=== PATIENT | male | born 1995 | race Caucasian/White ===

== ENCOUNTER 2024-01-03 16:34 | Emergency (ER) | payer OTHER, SELFPAY ==
[2024-01-03 16:37] VITALS: BP 143/85
[2024-01-03 17:27] VITALS: BP 143/82
[2024-01-03 17:29] LABS: Urine Albumin Negative (Neg - Trace); Urine Bilirubin Negative (Negative); Urine Character Clear (Clear); Urine Color Yellow; Urine Glucose Negative (Negative); Urine Ketone Negative (Negative); Urine Leukocyte Negative (Negative); Urine Nitrite Negative (Negative); Urine Occult Blood Negative (Negative); Urine Specific Gravity 1.015 (<1.030); Urine Urobilinogen Negative (Neg - 1+)
[2024-01-03 17:33] VITALS: BMI 27.2
--- NOTE | 2024-01-03 18:20 | ED.GENMED ---
History of Present Illness
General
Chief Complaint: Male Genito-Urinary Symptoms
Source: patient
Exam Limitations: none
Time Seen by Provider: 01/03/24 17:54
Travel History
Have you had any contact with someone who has COVID-19?: No
Do you have any symptoms of coronavirus? Fever > 100 degrees, chills, cough, shortness of breath, sore throat, loss of taste or smell, muscle aches, or headache?: No
History of Present Illness
History of Present Illness:
20-year-old male a lot mild left testicle pain and mild right low back pain in the last 24 hours. No dysuria or frequency. No fever or chills. No trauma. Symptoms are minimal in nature.
Past History
Past History
ED Past Medical History: None
Review of Systems
Review of Systems
All Other Systems: Not applicable
Constitutional: Denies fever
: Denies dysuria or frequency
Phy Exam
Physical Exam
Physical Exam:
GENERAL: Alert and oriented in no apparent distress
EYE: Orbits normal.
NECK: Supple
CARDIAC: Regular rate and rhythm without any obvious murmurs.
LUNGS: Clear breath sounds,normal
ABDOMEN: Soft, without focal tenderness or distention. No CVA tenderness. Mild pain in the right lower lumbar posteriorly
: Testicles normal. Cremasteric absent but symmetrical. No swelling no erythema.
NEUROLOGICAL: Alert and oriented , grossly non-focal
SKIN: Warm and dry, no rash or lesion, no discoloration, skin intact.
MUSCULOSKELETAL: No edema,no deformity.Good color
PSYCH: Normal and appropriate interaction.
Course
Orders/Labs/Results
Orders:
Orders
01/03/24 17:17
Urinalysis Reflex To Culture Urgent
Date Specimen was Collected: 01/03/24
Time Specimen was Collected: 17:14
01/03/24 18:06
CT Abd/pel Without Iv Or Oral Urgent
Comment:
Reason For Exam: Right flank pain/scrotal pain
Scrotum US [US Scrotum] Urgent
Comment:
Reason For Exam: Left testicle pain
Vital Signs
Initial and Last Documented VS:
Initial Vital Signs
Temp Pulse Resp BP Pulse Ox
98.1 F 96 16 143/85 99
01/03/24 16:37 01/03/24 16:37 01/03/24 16:37 01/03/24 16:37 01/03/24 16:37
Last Documented Vital Signs
Temp Pulse Resp BP Pulse Ox
98.1 F 96 16 143/82 96
01/03/24 16:37 01/03/24 16:37 01/03/24 16:37 01/03/24 17:27 01/03/24 17:33
MDM/Problems Addressed
Differential Diagnosis Includes:
Very low suspicion for serious issue. Doubt kidney stone with no blood in the urine and the back pain opposite the testicle pain. We will an ultrasound. Highly doubt testicular torsion. Ultrasound pending
*Radiology
Radiology exam reviewed: radiology read reviewed (Negative CT. Small left hydrocele. Small spermatocele right)
*Pulse Oximetry
Patient hypoxic: no
*Critical Care Note
Total Time (30-74mins, 75-104mins- exclusive of procedures): Not Applicable
Update Note
Update Note:
No serious issues found. No infectious issues. Lobation anti-inflammatories and urologic follow-up
ED Attending Note
-
Portions of this chart may have been created with voice recognition software.� Occasional wrong word or��sound alike� substitutions may have occurred due to the inherent limitations of voice recognition software.
Discharge Plan
Departure
Patient Disposition: Home (Routine Discharge)
Date of Disposition: 01/03/24
Time of Disposition: 20:24
Patient with high blood pressure during this ER visit?: Yes
Discharge Problem:
Left testicle pain, Right back pain, Small right epididymal cyst/spermatocele, Small left hydrocele
Instructions: Hydrocele, BLOOD PRESSURE
Prescriptions:
No Action
No Current Medications
0
Referrals:
Familia Kellogg MD [Active] - Next open appointment
Shree Frederick MD [Family Provider] - Follow up in 5-7 days
Activity Restrictions/Additional Instructions:
Elevation as discussed
Advil or Motrin for pain
call urology for follow-up
Return with increasing pain fever abdominal pain or any other concerning symptoms
Interventions
Interventions:
*Risk Screen - Suicide Last Done: 01/03/24 16:37
*General Assessment Last Done: 01/03/24 16:37
*Neglect/Abuse Screening Last Done: 01/03/24 16:37
ED- Fall Risk Assessment Last Done: 01/03/24 17:33
*ED COVID-19 Vaccine History Last Done: 01/03/24 17:33
ED-Male Genitourinary Assessment Last Done: 01/03/24 17:33
Discharge Date and Time
Print Language: WOLOF
== END 2024-01-03 20:53 | disposition home or self-care (01) ==
LOC: EMR 16:34
PROVIDERS: EMERGENCY PHYSICIAN Emergency Medicine; FAMILY PHYSICIAN Family Medicine
DX: N50.812 Left testicular pain (principal); N43.41 Spermatocele of epididymis, single; M54.9 Dorsalgia, unspecified; N43.3 Hydrocele, unspecified; R03.0 Elevated blood-pressure reading, without diagnosis of hypertension
CPT/HCPCS: 99285; 74176; 76870; 81003; 93976

== ENCOUNTER → 2025-07-30 10:28 | Outpatient (REF) | payer OTHER, SELFPAY | LOC: REG 10:28 | PROVIDERS: ATTENDING PHYSICIAN Physician Assistant Medical; FAMILY PHYSICIAN Family Medicine | DX: Z00.00 Encounter for general adult medical examination without abnormal findings (principal) | CPT/HCPCS: 36415; 86850; 86900; 86901 ==